=== PATIENT | male | born 1985 | race African-American/Black ===

== ENCOUNTER 2016-08-21 20:53 | Emergency (ER) | payer OTHER, MEDICAID ==
[~2016-08-21] VITALS: Ht 175.3 cm; Wt 99.8 kg
--- NOTE | 2016-08-21 21:33 | NUR ---
PT WALKED INTO ER C/O FLU SYMPTOMS, PT IS ALERT, ORIENTED X 4, NO RESP DISTRESS NOTED OR REPORTED UPON ASSESSMENT...MD AT BEDSIDE...
[2016-08-21 22:15] LABS: BASOPHILS # (AUTO) 0.1 K/uL (0.0-0.2); EOSINOPHILS # (AUTO) 0.3 K/uL (0.0-0.7); EOSINOPHILS % (AUTO) 4.5 % (0.0-7.0); HEMATOCRIT 45.9 % (40.0-50.0); HEMOGLOBIN 15.3 g/dL (14.0-18.0); LYMPHOCYTES # (AUTO) 2.3 K/uL (0.8-4.8); LYMPHOCYTES % (AUTO) 36.8 % (20.5-51.5); MEAN CORPUSCULAR HGB CONC 33 g/dL (32.0-37.0); MONOCYTES # (AUTO) 0.5 K/uL (0.1-1.30); MONOCYTES % (AUTO) 7.2 % (0.0-11.0); NEUTROPHILS # (AUTO) 3.1 K/uL (1.8-8.9); NEUTROPHILS % (AUTO) 50.5 % (38.5-71.5); PLATELET COUNT (AUTO) 171 K/uL (150-450); RED BLOOD CELL COUNT(AUTO) 4.79 MIL/uL (4.70-6.10); RED CELL DISTRIBUTION WIDTH 11.9 % (11.5-14.5); WHITE BLOOD COUNT (AUTO) 6.3 K/uL (4.0-11.2)
[2016-08-21 22:20] LABS: CALCIUM 9.1 mg/dL (8.5-10.1); CREATININE 1.2 mg/dL (0.6-1.3); POTASSIUM 4.1 mmol/L (3.5-5.1)
[2016-08-21 22:26] LABS: ALBUMIN 3.7 g/dL (3.4-5.0); BILIRUBIN,DIRECT 0.1 mg/dL (0.0-0.2); BILIRUBIN,TOTAL 0.3 mg/dL (0.2-1.0); TOTAL PROTEIN, SERUM 7.1 g/dL (6.4-8.2)
--- NOTE | 2016-08-21 23:05 | NUR ---
Patient discharged to home in stable conditon. Written and verbal after care instructions given. Patient verbalizes understanding of instructions. Pt walked out of ER unassisted with belongings at side...
[2016-08-21 23:06] VITALS: BP 137/98
== END 2016-08-21 23:06 | disposition home or self-care (01) ==
LOC: ER 20:56
DX: R53.1 Weakness (principal); J45.909 Unspecified asthma, uncomplicated
CPT/HCPCS: 36415; 80048; 80076; 85025; 99284; A4663

== ENCOUNTER → 2016-11-19 | Emergency (ER) | payer BC, MEDICAID ==
[~2016-11-19] VITALS: Ht 175.3 cm; Wt 99.8 kg
[~2016-11-19] MED LIST: IV NORMAL SALINE 1000 ML BAG IV ONE; ONDANSETRON 4 MG/2 ML VIAL IV ONE; ONDANSETRON 4 MG/2 ML VIAL ONE
[2016-11-19 23:16] LABS: BASOPHILS % (AUTO) 0.6 % (0.0-2.0); EOSINOPHILS % (AUTO) 0.2 % (0.0-7.0); HEMATOCRIT 46.5 % (40-50); HEMOGLOBIN 15.6 G/DL (14.0-18.0); LYMPHOCYTES # (AUTO) 0.8 K/UL (0.8-4.8); LYMPHOCYTES % (AUTO) 13.3 % (20.5-51.5); MEAN CORPUSCULAR HEMOGLOBIN 31.9 UUG (27.0-31.0); MEAN CORPUSCULAR HGB CONC 34 g/dL (32.0-37.0); MEAN CORPUSCULAR VOLUME 94.8 FL (82.0-92.0); MONOCYTES # (AUTO) 0.3 K/UL (0.1-1.30); NEUTROPHILS # (AUTO) 4.8 K/UL (1.8-8.9); NEUTROPHILS % (AUTO) 80.9 % (38.5-71.5); PLATELET COUNT (AUTO) 153 K/UL (150-450); RED BLOOD CELL COUNT(AUTO) 4.91 MIL/UL (4.7-6.1); WHITE BLOOD COUNT (AUTO) 5.9 K/UL (4.0-11.2)
[2016-11-19 23:27] LABS: BILIRUBIN,DIRECT 0.2 mg/dL (0.0-0.2); BILIRUBIN,TOTAL 0.8 mg/dL (0.2-1.0); CREATININE 1.5 mg/dL (0.6-1.3); POTASSIUM 3.5 mmol/L (3.5-5.1)
[2016-11-20 02:13] VITALS: BP 136/69
--- NOTE | 2016-11-20 02:15 | NUR ---
Patient discharged to home in stable conditon. Written and verbal after care instructions given. PT ADVISED TO FOLLOW UP WITH PMD AND TO RETURN TO THE ED IF CONDITION WORSENS. IV REMOVED AND PRESSURE DRESSING APPLIED. Patient verbalizes understanding of instructions.
== END | disposition home or self-care (01) ==
LOC: ER 22:25
DX: A08.4 Viral intestinal infection, unspecified (principal); E86.0 Dehydration; J45.909 Unspecified asthma, uncomplicated
CPT/HCPCS: 36415; 80048; 80076; 85025; 96361; 96374; 99285; A4663; J2405; J7030

== ENCOUNTER 2017-04-22 01:02 | Emergency (ER) | payer BC, MEDICAID ==
[~2017-04-22] VITALS: Ht 175.3 cm; Wt 108.9 kg
[2017-04-22] MEDS ORDERED: ALBUTEROL SULFATE 2.5 MG/3 ML NEBU NEB ONE (02:15)
[2017-04-22] MEDS ORDERED: ACETAMINOPHEN ES 500 MG TABLET PO ONE (02:15)
[2017-04-22] MEDS ORDERED: ALBUTEROL SULFATE 2.5 MG/3 ML NEBU ONE (02:27)
[2017-04-22] MEDS ORDERED: ACETAMINOPHEN ES 500 MG TABLET ONE (02:32)
--- NOTE | 2017-04-22 02:52 | NUR ---
Patient discharged to home in stable conditon. Written and verbal after care instructions given. Patient verbalizes understanding of instructions.
== END 2017-04-22 02:53 | disposition home or self-care (01) ==
LOC: ER 01:04
DX: B34.9 Viral infection, unspecified (principal); J45.909 Unspecified asthma, uncomplicated
CPT/HCPCS: 94640; 99283; A4663

== ENCOUNTER 2017-06-02 17:30 | Emergency (ER) | payer OTHER, MEDICAID ==
[~2017-06-02] VITALS: Ht 175.3 cm; Wt 99.8 kg
--- NOTE | 2017-06-02 18:43 | NUR ---
Patient is resting comfortably on gurney, respiration:easy, calm & still pending MD evaluation
--- NOTE | 2017-06-02 18:50 | NUR ---
MD is at bedside, pending MD orders
--- NOTE | 2017-06-02 18:58 | NUR ---
Patient discharged to home in stable conditon. Written and verbal after care instructions given to patient. Patient verbalizes understanding of instructions.
== END 2017-06-02 18:59 | disposition home or self-care (01) ==
LOC: ER 17:34
DX: B34.9 Viral infection, unspecified (principal); J45.909 Unspecified asthma, uncomplicated; F90.9 Attention-deficit hyperactivity disorder, unspecified type
CPT/HCPCS: 99281; A4663

== ENCOUNTER 2018-07-25 00:41 | Emergency (ER) | payer BC, MEDICAID ==
[~2018-07-25] VITALS: Ht 175.3 cm; Wt 106.6 kg
[2018-07-25] MEDS ORDERED: FLUTICASONE PROP 50 MCG SPRAY (00:56)
[2018-07-25] MEDS ORDERED: NAPROXEN 500 MG TABLET (00:56)
[2018-07-25] MEDS ORDERED: CLOTRIMAZOLE-BETAMETHASONE CRM (00:56)
--- NOTE | 2018-07-25 01:04 | NUR ---
Dr. Shelley at bedside for MSE.
[2018-07-25] MEDS ORDERED: LORAZEPAM 0.5 MG TABLET PO ONE (01:15)
[2018-07-25] MEDS ORDERED: LORAZEPAM 1 MG TABLET ONE (01:16)
[2018-07-25 01:26] LABS: EOSINOPHILS # (AUTO) 0.1 K/uL (0.0-0.7); HEMATOCRIT 45.4 % (36.7-47.1); HEMOGLOBIN 15.5 g/dL (12.5-16.3); LYMPHOCYTES # (AUTO) 1.9 K/uL (20.0-40.0); LYMPHOCYTES % (AUTO) 37.8 % (20.5-51.5); MEAN CORPUSCULAR HEMOGLOBIN 32.4 uug (23.8-33.4); MEAN CORPUSCULAR HGB CONC 34 g/dL (32.5-36.3); MEAN CORPUSCULAR VOLUME 94.8 fL (73.0-96.2); MONOCYTES # (AUTO) 0.4 K/uL (2.0-10.0); NEUTROPHILS # (AUTO) 2.5 K/uL (1.8-8.9); NEUTROPHILS % (AUTO) 50.2 % (38.5-71.5); PLATELET COUNT (AUTO) 174 K/uL (152-348); RED BLOOD CELL COUNT(AUTO) 4.79 MIL/uL (4.06-5.63); WHITE BLOOD COUNT (AUTO) 4.9 K/uL (3.6-10.2)
[2018-07-25 01:34] LABS: CREATININE 1.4 mg/dL (0.6-1.3); POTASSIUM 3.7 mmol/L (3.5-5.1)
--- NOTE | 2018-07-25 01:46 | NUR ---
Patient discharged to home in stable conditon. Written and verbal after care instructions given. Patient verbalizes understanding of instructions. Patient ambulated out of ER with steady gait, no acute signs of distress, VSS, all belongings taken.
[2018-07-25 01:50] VITALS: BP 111/87
== END 2018-07-25 01:51 | disposition home or self-care (01) ==
LOC: ER 00:45
DX: F41.9 Anxiety disorder, unspecified (principal); J45.909 Unspecified asthma, uncomplicated; Z79.1 Long term (current) use of non-steroidal anti-inflammatories (NSAID); Z79.899 Other long term (current) drug therapy
CPT/HCPCS: 36415; 85025; A4663

== ENCOUNTER 2018-09-15 20:00 | Emergency (ER) | payer BC, MEDICAID ==
[~2018-09-15] VITALS: Ht 175.3 cm; Wt 93.0 kg
[~2018-09-15 20:00] MED LIST changes: +CLOTRIMAZOLE-BETAMETHASONE CRM; +FLUTICASONE PROP 50 MCG SPRAY; -IV NORMAL SALINE 1000 ML BAG IV ONE; +NAPROXEN 500 MG TABLET; -ONDANSETRON 4 MG/2 ML VIAL IV ONE; -ONDANSETRON 4 MG/2 ML VIAL ONE
--- NOTE | 2018-09-15 20:18 | NUR ---
PATIENT WAS MSE BY DR BOLANOS IN ROOM 03A.
--- NOTE | 2018-09-15 20:22 | NUR ---
Patient discharged to home in stable conditon. Written and verbal after care instructions given. Patient verbalizes understanding of instructions.
[2018-09-15 20:25] VITALS: BP 140/78
== END 2018-09-15 20:26 | disposition home or self-care (01) ==
LOC: ER 20:00
DX: F91.9 Conduct disorder, unspecified (principal); J45.909 Unspecified asthma, uncomplicated; Z76.0 Encounter for issue of repeat prescription; Z79.899 Other long term (current) drug therapy
CPT/HCPCS: A4663

== ENCOUNTER 2019-02-04 22:27 | Emergency (ER) | payer BC, MEDICAID ==
[~2019-02-04] VITALS: Ht 175.3 cm; Wt 112.5 kg
--- NOTE | 2019-02-04 23:20 | NUR ---
DR. HOLLAND AT BEDSIDE FOR MSE.
[2019-02-04] MEDS ORDERED: NAPROXEN 500 MG TABLET PO ONE (23:30)
--- NOTE | 2019-02-04 23:40 | NUR ---
PATIENT WAS PRESCRIBED NAPROXEN, DOES NOT WANT TO TAKE IT AT THIS TIME, DR. HOLLAND NOTIFIED.
[2019-02-04] MEDS ORDERED: NAPROXEN 500 MG TABLET ONE (23:42)
[2019-02-05 00:35] VITALS: BP 135/89
--- NOTE | 2019-02-05 00:35 | NUR ---
Patient discharged to home in stable conditon. Written and verbal after care instructions given. Patient verbalizes understanding of instructions. PATIENT LEFT WITH STABLE GAIT.
== END 2019-02-05 00:36 | disposition home or self-care (01) ==
LOC: ER 22:27
DX: M72.2 Plantar fascial fibromatosis (principal); J45.909 Unspecified asthma, uncomplicated; Z79.899 Other long term (current) drug therapy
CPT/HCPCS: 73650; A4663

== ENCOUNTER 2019-02-15 22:29 | Emergency (ER) | payer BC, MEDICAID ==
[~2019-02-15] VITALS: Ht 175.3 cm; Wt 113.4 kg
--- NOTE | 2019-02-15 22:53 | NUR ---
HUMAN RESOURCE OFFICER AT BEDSIDE
[2019-02-15 22:55] VITALS: BP 148/99
[2019-02-15 23:04] LABS: BASOPHILS % (AUTO) 0.8 % (0.0-2.0); EOSINOPHILS # (AUTO) 0.3 K/uL (0.0-0.7); EOSINOPHILS % (AUTO) 4.4 % (0.0-7.0); HEMATOCRIT 42.4 % (36.7-47.1); HEMOGLOBIN 14.9 g/dL (12.5-16.3); LYMPHOCYTES # (AUTO) 2.1 K/uL (20.0-40.0); LYMPHOCYTES % (AUTO) 34.7 % (20.5-51.5); MEAN CORPUSCULAR HEMOGLOBIN 34.1 uug (23.8-33.4); MEAN CORPUSCULAR HGB CONC 35 g/dL (32.5-36.3); MONOCYTES # (AUTO) 0.4 K/uL (2.0-10.0); MONOCYTES % (AUTO) 6.8 % (0.0-11.0); NEUTROPHILS # (AUTO) 3.2 K/uL (1.8-8.9); NEUTROPHILS % (AUTO) 53.3 % (38.5-71.5); PLATELET COUNT (AUTO) 183 K/uL (152-348); RED BLOOD CELL COUNT(AUTO) 4.37 MIL/uL (4.06-5.63); WHITE BLOOD COUNT (AUTO) 5.9 K/uL (3.6-10.2)
[2019-02-15 23:09] LABS: CREATININE 1.1 mg/dL (0.6-1.3); POTASSIUM 3.5 mmol/L (3.5-5.1)
--- NOTE | 2019-02-15 23:39 | NUR ---
Patient discharged to home in stable conditon. Written and verbal after care instructions given. Patient verbalizes understanding of instructions. AMBULATORY W/ STABLE GAIT ALL BELONGINGS W/ PT INSTRUCTED NOT TO DRIVE
== END 2019-02-15 23:40 | disposition home or self-care (01) ==
LOC: ER 22:29
DX: R53.1 Weakness (principal); J45.909 Unspecified asthma, uncomplicated; F41.9 Anxiety disorder, unspecified; F41.0 Panic disorder [episodic paroxysmal anxiety]; Z79.899 Other long term (current) drug therapy
CPT/HCPCS: 36415; 85025; A4663

== ENCOUNTER 2019-10-07 23:00 | Emergency (ER) | payer BC, MEDICAID ==
[~2019-10-07] VITALS: Ht 175.3 cm; Wt 108.9 kg
--- NOTE | 2019-10-07 23:18 | NUR ---
PT PRESENTED TO ER IN STABLE CONDITION W/STEADY GAIT C/O GENERALIZED WEAKNESS . PT A/OX3 , NO NEURO DEFICIT NOTED.NO CHEST PAIN. NO SOB, LUNG SOUNDS CLEAR. PT PUT ON MONITOR. V/S STABLE.
[2019-10-07 23:58] LABS: CREATININE 1.3 mg/dL (0.6-1.3); POTASSIUM 3.5 mmol/L (3.5-5.1)
[2019-10-08 00:08] LABS: BASOPHILS % (AUTO) 0.8 % (0.0-2.0); EOSINOPHILS # (AUTO) 0.2 K/uL (0.0-0.7); EOSINOPHILS % (AUTO) 3.4 % (0.0-7.0); HEMATOCRIT 42.7 % (36.7-47.1); HEMOGLOBIN 14.5 g/dL (12.5-16.3); LYMPHOCYTES # (AUTO) 2.4 K/uL (20.0-40.0); MEAN CORPUSCULAR HEMOGLOBIN 32.6 uug (23.8-33.4); MEAN CORPUSCULAR HGB CONC 34 g/dL (32.5-36.3); MEAN CORPUSCULAR VOLUME 96.1 fL (73.0-96.2); MONOCYTES # (AUTO) 0.5 K/uL (2.0-10.0); MONOCYTES % (AUTO) 9.1 % (0.0-11.0); NEUTROPHILS # (AUTO) 2.8 K/uL (1.8-8.9); NEUTROPHILS % (AUTO) 46.7 % (38.5-71.5); PLATELET COUNT (AUTO) 169 K/uL (152-348); RED BLOOD CELL COUNT(AUTO) 4.44 MIL/uL (4.06-5.63); WHITE BLOOD COUNT (AUTO) 5.9 K/uL (3.6-10.2)
[2019-10-08 00:09] LABS: BILIRUBIN,TOTAL 0.4 mg/dL (0.2-1.0); TOTAL PROTEIN, SERUM 6.8 g/dL (6.4-8.2)
[2019-10-08 00:36] LABS: *MONOTEST NEGATIVE (NEGATIVE)
--- NOTE | 2019-10-08 01:15 | NUR ---
Patient discharged to home in stable condition. Written and verbal after care instructions given. Patient verbalizes understanding of instructions. Stressed follow up or return to ER for worsening s/s.ALL BELONGINGS W/PATIENT.
[2019-10-08 01:35] VITALS: BP 135/84
== END 2019-10-08 01:16 | disposition home or self-care (01) ==
LOC: ER 23:01
DX: B34.9 Viral infection, unspecified (principal); Z20.828 Contact with and (suspected) exposure to other viral communicable diseases; J45.909 Unspecified asthma, uncomplicated; R51 Headache
CPT/HCPCS: 36415; 71045; 80053; 85025; 86308; 86403; 87070; 87400; 99284; U0003

== ENCOUNTER 2020-10-13 02:09 | Emergency (ER) | payer OTHER ==
[~2020-10-13] VITALS: Ht 175.3 cm; Wt 117.9 kg
--- NOTE | 2020-10-13 02:42 | NUR ---
xray at bedside
--- NOTE | 2020-10-13 03:35 | NUR ---
ct at bedside
--- NOTE | 2020-10-13 03:37 | NUR ---
pt taken to ct
--- NOTE | 2020-10-13 03:57 | NUR ---
pt. returned from ct
--- NOTE | 2020-10-13 04:13 | NUR ---
pt. resting comfortably in bed. Knee immobilizer in place. Vss.
[2020-10-13 05:45] VITALS: BP 122/83
== END 2020-10-13 05:40 | disposition home or self-care (01) ==
LOC: ER 02:18
DX: S83.011A Lateral subluxation of right patella, initial encounter (principal); X50.9XXA Other and unspecified overexertion or strenuous movements or postures, initial encounter; Y92.013 Bedroom of single-family (private) house as the place of occurrence of the external cause; R93.6 Abnormal findings on diagnostic imaging of limbs; J45.909 Unspecified asthma, uncomplicated; R03.0 Elevated blood-pressure reading, without diagnosis of hypertension
CPT/HCPCS: 73562; 73700; A4663